=== PATIENT | female | born 1945 | race Caucasian/White ===

== ENCOUNTER 2017-01-26 10:00 | Emergency (ER) | payer MEDICARE, OTHER, MEDICAID ==
[~2017-01-26] VITALS: Ht 167.6 cm; Wt 99.8 kg
[~2017-01-26 10:00] MED LIST: ATEN-60 OR; DEXA4TAB OR; DULO30CA2 PO; FUR40T PO; LIS20T PO; LORA-205 OR; MAGN400T5 PO; METO-281 OR; NOR10T PO; PREG25CA PO; RIV20T PO; ZOLP-158 PO
[2017-01-26] MEDS ORDERED: SODIUM CHLORIDE 0.9% 1,000 ML IV ONE (10:32)
[2017-01-26 10:57] LABS: Basophils # (auto) 0 uL; Basophils % (auto) 0.3 % (0.0-2.0); CONDITION Y; Eosinophils # (auto) 0.1 uL; Eosinophils % (auto) 1.4 % (0.0-7.0); Hematocrit 41.4 % (36.0-46.0); Hemoglobin 14.3 g/dL (12.2-16.2); Lymphocytes # (auto) 1.7 uL; Lymphocytes % (auto) 24.2 % (10.0-50.0); Mean Corpuscular Hemoglobin 32.4 pg (28.0-32.0); Mean Corpuscular Hgb Conc. 34.5 g/dL (32.0-36.0); Mean Corpuscular Volume 93.8 fL (80.0-100.0); Mean Platelet Volume 8.3 fL (7.4-10.4); Monocytes # (auto) 0.5 uL; Monocytes % (auto) 7.8 % (0.0-12.0); Neutrophils # (auto) 4.6 uL; Neutrophils % (auto) 66.3 % (37.0-80.0); Platelet Count (auto) 249 10^3/uL (140-450); Red Cell Distribution Width 12.7 % (11.6-16.0); White Blood Cell 6.9 10^3/uL (4.4-10.8)
[2017-01-26 11:21] LABS: Albumin 3.3 g/dL (3.4-5.0); Alkaline Phosphatase 90 U/L (45-117); Anion Gap 13 (5-15); Aspartate Aminotransferase 10 U/L (15-37); BUN/Creatinine Ratio 24.5; Bilirubin, Total 0.3 mg/dL (0.2-1.0); Blood Urea Nitrogen 24 mg/dL (7-18); Calcium 9.2 mg/dL (8.5-10.1); Carbon Dioxide 21 mmol/L (21-32); Chloride 101 mmol/L (98-107); GFR African American 72 mL/min; GFR Non-African American 60 mL/min; Glucose 164 mg/dL (74-106); Sodium 135 mmol/L (136-145); Total Protein 6.9 g/dL (6.4-8.2)
[2017-01-26] MEDS ORDERED: SODIUM CHLORIDE 0.9% 1,000 ML IV SCH (11:56)
[2017-01-26] MEDS ORDERED: LACTULOSE 20Gm/30ML SOLN PO PRN (12:00)
[2017-01-26] MEDS ORDERED: ACETAMINOPHEN 500 MG TAB PO PRN (12:00)
[2017-01-26] MEDS ORDERED: NITROGLYCERIN 0.4 MG SL TAB SL PRN (12:00)
[2017-01-26] MEDS ORDERED: DEXTROSE (50%) 50ML SYRG IV PRN (12:00)
[2017-01-26] MEDS ORDERED: HYDROcodone-ACET 5/325MG TAB PO PRN (12:00)
[2017-01-26] MEDS ORDERED: ZOLPIDEM TARTRATE 5 MG TAB PO PRN (12:00)
[2017-01-26] MEDS ORDERED: LORazepam 0.5 MG TAB PO PRN (12:00)
[2017-01-26] MEDS ORDERED: MORPHINE SULF INJ 2 MG/ML SYRINGE 1ML IV PRN ×2 (12:00)
[2017-01-26] MEDS ORDERED: ASPirin 81 mg TAB PO ONE (12:30)
[2017-01-26] MEDS ORDERED: DULoxetine HCL 30 MG CAP PO ONE (12:30)
[2017-01-26] MEDS ORDERED: ATENOLOL 25 MG TAB PO ONE (12:30)
[2017-01-26 13:10] VITALS: BP 106/59
[2017-01-26 14:38] LABS: Temperature: 22.9 C (20.0-25.0)
[2017-01-26] MEDS ORDERED: ACCU-CHEK COMFORT CURVE STRIP VI SCH (17:00)
[2017-01-26] MEDS ORDERED: InsuLIN REG 1unit/0.01ml Soln (100units/ml) SC SCH (17:00)
[2017-01-26] MEDS ORDERED: RIVAROXABAN 20 MG PO SCH (18:00)
[2017-01-26] MEDS ORDERED: RIVAROXABAN 20 MG TAB PO SCH (18:00)
[2017-01-26] MEDS ORDERED: ATENOLOL 25 MG TAB PO SCH (22:00)
[2017-01-27] MEDS ORDERED: ASPirin 81 mg TAB PO SCH (10:00)
[2017-01-27] MEDS ORDERED: DULoxetine HCL 30 MG CAP PO SCH (10:00)
== END 2017-01-26 15:34 | disposition home or self-care (01) ==
LOC: EDBD 10:00 → ER 10:00
DX: M25.562 Pain in left knee (principal); E11.9 Type 2 diabetes mellitus without complications; R42 Dizziness and giddiness; M79.89 Other specified soft tissue disorders; Z88.8 Allergy status to other drugs, medicaments and biological substances; Z88.1 Allergy status to other antibiotic agents; Z79.899 Other long term (current) drug therapy; Z95.0 Presence of cardiac pacemaker; Z90.710 Acquired absence of both cervix and uterus; Z90.49 Acquired absence of other specified parts of digestive tract; W18.39XA Other fall on same level, initial encounter; Y93.89 Activity, other specified; Y92.89 Other specified places as the place of occurrence of the external cause; Y99.8 Other external cause status
CPT/HCPCS: 36415; 70450; 71010; 73562; 80053; 82550; 82607; 82746; 83036; 84443; 84484; 85025; 85379; 85652; 86141; 96360; 99285; J7030